=== PATIENT | male | born 1985 | race Caucasian/White ===

== ENCOUNTER 2016-08-21 18:10 | Emergency (ER) | payer OTHER ==
[2016-08-21 18:38] VITALS: RESP 18
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
--- NOTE | 2016-08-21 19:49 | CT ---
EXAMINATION TYPE: CT brain wo con DATE OF EXAM: 08/21/2016 7:44 PM COMPARISON: NONE HISTORY: PT states of yellowish fluid coming from nose after head injury today. Headache. CT DLP: 1054.2 mGycm. Automated Exposure Control for Dose Reduction was Utilized. TECHNIQUE: CT scan of the head is performed without contrast. FINDINGS: There is no acute intracranial hemorrhage, mass effect, or midline shift identified. The ventricles and sulci are within normal limits in size. The globes are intact and the visualized sin uses are clear. IMPRESSION: No acute intracranial hemorrhage, mass effect, or midline shift is seen. Unremarkable st udy.
[2016-08-21 19:52] VITALS: BP 141/81; PULSE 71; TEMP 98.4
== END 2016-08-21 20:16 | disposition home or self-care (01) ==
LOC: EC 18:10
DX: S09.90XA Unspecified injury of head, initial encounter (principal); R51 Headache; J34.89 Other specified disorders of nose and nasal sinuses; E11.9 Type 2 diabetes mellitus without complications; Z87.891 Personal history of nicotine dependence; Z79.4 Long term (current) use of insulin; Z79.899 Other long term (current) drug therapy; Z88.0 Allergy status to penicillin; W22.09XA Striking against other stationary object, initial encounter
CPT/HCPCS: 70450; 99283

== ENCOUNTER 2017-01-11 10:47 | Day surgery (SDC) | payer OTHER, BC ==
[2017-01-09 18:32] VITALS: BMI 29.8
[~2017-01-11 10:47] MED LIST: HYDROmorphone 1 MG/ML 1 ML SYRINGE IVP PRN; LACTATED RINGERS 1,000 ML IV SCH; LIDOCAINE 1% 20 ML VIAL (10MG/ML) FOR IV START INTRADERMA PRN; ONDANSETRON 4 MG/2 ML VIAL IVP ONE; Pre Op ABX Message 1 EACH MISC MISCELLANE ONE
[2017-01-11 11:08] LABS: Glucose,Whole Blood 203 mg/dL (75-99)
[2017-01-11 11:12] VITALS: RESP 16; TEMP 98.2
[2017-01-11] MEDS ORDERED: SUCCINYLCHOLINE CHLORIDE 100 MG/5 ML SYR IV ONE (11:24)
[2017-01-11] MEDS ORDERED: LIDOCAINE 1% INJ 10MG/ML (20 ML MDV) ONE (11:24)
[2017-01-11] MEDS ORDERED: fentaNYL (PF) 50 MCG/ML 2 ML AMP ONE (11:24)
[2017-01-11] MEDS ORDERED: MIDAZOLAM 2 MG/2 ML VIAL ONE (11:24)
[2017-01-11] MEDS ORDERED: PROPOFOL 10 MG/ML 20 ML VIAL IV ONE (11:24)
[2017-01-11] MEDS ORDERED: SODIUM CHLORIDE 0.9% 50 ML with CLINDAMYCIN 600 MG IV ONE ×2 (11:54)
[2017-01-11] MEDS ORDERED: BUPIVACAINE (PF) 0.25% 30 ML VIAL SQ ONE ×3 (11:57)
[2017-01-11] MEDS ORDERED: LACTATED RINGERS 1,000 ML IV ONE (12:16)
--- NOTE | 2017-01-11 14:14 | P.OP ---
Date of Procedure: 01/11/17 Preoperative Diagnosis: Multiple lipomastosis Postoperative Diagnosis: Multiple lipomatosis Procedure(s) Performed: Excisoin of lipoma Anesthesia: EMERALD Surgeon: Raul Hammer Pathology: other Condition: stable Operative Findings: Patient had deep subcutaneous lipomas that was below the subcu cutaneous tissue extending to the muscular fascia in all 4 locations in the left lower back as well as the forearm. Measurements include for the two back lipomas 5 x 3 cm x 1.5 cm and 5.5 x 2.5 x 1 cm., Back lipomas were multilobulated and had previously been removed once therefore there was significant amount of scar tissue associated with them. The 2 forearm lipomas were well encapsulated and firm and measured 1.5 x 2.3 x 0.3 cm, 1.1 x 0.8 x 0.3 cm. Description of Procedure: Patient a 31-year-old male who was presented with multiple uncomfortable growing lipomas. Counseled him to take the most symptomatic lipomas off. Informed consent was obtained after which the patient was taken to the operating room and placed in the left decubitus position with the left arm up. Appropriate timeout was called patient prepped and draped in sterile surgical fashion and the 2 lipomas and left low back were identified and after local infiltration skin was incised and the lipoma was dissected free from the surrounding tissue and removed completely. The cavity itself was then closed with 3-0 Vicryl skin closed with 4-0 Monocryl.. Was done for both lipomas on the left lower back the patient's left arm was prepped in the appropriate fashion and similarly to further lipomas were removedThe same fashion as the first one has been described above. It was closed similarly and Dermabond was applied and all of these incisions and then pressure dressing with Tegaderm was applied. Patient was extubated taken to recovery room in stable condition there were no complications.
[2017-01-11 14:21] LABS: Glucose,Whole Blood 177 mg/dL (75-99)
[2017-01-11 14:46] VITALS: BP 126/72; PULSE 51
== END 2017-01-11 15:16 | disposition home or self-care (01) ==
LOC: OR 10:47
PROVIDERS: ATTEND Surgery
DX: E88.2 Lipomatosis, not elsewhere classified (principal); Z87.891 Personal history of nicotine dependence; E11.9 Type 2 diabetes mellitus without complications; Z79.4 Long term (current) use of insulin; Z88.0 Allergy status to penicillin
CPT/HCPCS: 88304; 21932; 21933; 25076 ×2; J2250; J2405; J2001; J3010; J0330; J2704

== ENCOUNTER 2022-12-27 22:29 | Emergency (ER) | payer BC, OTHER ==
[2022-12-27 22:45] VITALS: RESP 16; TEMP 98.6
[2022-12-27 22:51] LABS: Glucose,Whole Blood 134 mg/dL (70-110)
[2022-12-27 23:27] LABS: Basophils % (A) 0 %; Eosinophils # (A) 0.2 k/uL (0-0.7); Eosinophils % (A) 3 %; HCT 38.9 % (39.0-53.0); HGB 13.6 gm/dL (13.0-17.5); Lymphocytes # (A) 1.7 k/uL (1.0-4.8); Lymphocytes % (A) 19 %; MCH 30.8 pg (25.0-35.0); MCHC 34.9 g/dL (31.0-37.0); MCV 88.3 fL (80.0-100.0); Mean Platelet Volume 10.5; Monocytes # (A) 0.5 k/uL (0-1.0); Monocytes % (A) 6 %; Neutrophils # (A) 6.6 k/uL (1.3-7.7); Neutrophils % (A) 72 %; Platelet Count 154 k/uL (150-450); RBC 4.41 m/uL (4.30-5.90); RDW 12.6 % (11.5-15.5); WBC 9.3 k/uL (3.8-10.6)
[2022-12-27 23:45] LABS: ALT 23 U/L (4-49); AST 23 U/L (17-59); African American GFR (CKD) >90 (>60 ml/min/1.73 sqM); Albumin 4.1 g/dL (3.5-5.0); Alkaline Phosphatase 79 U/L (38-126); Anion Gap 8 mmol/L; Blood Urea Nitrogen 19 mg/dL (9-20); Calcium 8.8 mg/dL (8.4-10.2); Carbon Dioxide 24 mmol/L (22-30); Chloride 106 mmol/L (98-107); Glucose 138 mg/dL (74-99); Non-African American GFR(CKD) >90 (>60 ml/min/1.73 sqM); Phosphorus 3.3 mg/dL (2.5-4.5); Potassium 3.6 mmol/L (3.5-5.1); Sodium 138 mmol/L (137-145); Total Bilirubin 0.4 mg/dL (0.2-1.3); Total Protein 6.6 g/dL (6.3-8.2)
--- NOTE | 2022-12-28 00:01 | ED ---
Recheck HPI - General Chief Complaint: Recheck/Abnormal Lab/Rx Stated Complaint: Diabetic Complications Time Seen by Provider: 12/27/22 22:38 Source: patient, EMS, RN notes reviewed Mode of arrival: EMS Limitations: no limitations - History of Present Illness Initial Comments: This is a 37-year-old male who presents to the emergency department for concerns related to his diabetes. States that he took his typical medication this evening, which includes 22 units of Lantus at 2100 and 9 units of Apidra at 1930 with his dinner. He ate his full dinner, including 64 grams of carbohydrates. Shortly afterwards, he noticed that his blood sugar slowly started to drop, and reached a level of 50. He felt very nauseous when this occurred. This prompted him to call EMS. States that he ate a candy bar and glucagon, however this only temporarily increased blood sugar. EMS then had him eat a peanut butter sandwich, and his sugar seemed to stabilize. States that this has happened in the past, however his phlebotomy technologist did not give any indication as to why this may have occurred. Believes that something may have happened causing his Lantus to absorb immediately as opposed to over the course of 24 hours. Denies any fevers, chills, sore throat, cough, dyspnea, chest pain, palpitations, abdominal pain, vomiting, diarrhea, back pain, or headaches. MD Complaint: abnormal lab - Related Data Home Medications Medication Instructions Recorded Confirmed Insulin Glargine [Lantus] 26 unit SQ HS 04/27/15 02/22/17 Insulin Lispro [humaLOG] See Protocol SQ TID-W/MEALS 04/27/15 02/22/17 Cholecalciferol [Vitamin D3] 2,000 unit PO DAILY 08/21/16 02/22/17 Multivit-Min/FA/Lycopen/Lutein 1 tab PO DAILY 08/21/16 02/22/17 [Centrum Silver Men Tablet] Previous Rx's Medication Instructions Recorded Ibuprofen [Motrin] 800 mg PO Q8H PRN #30 tab 01/11/17 traMADol HCL [Conzip] 100 mg PO Q12HR PRN #4 cap 02/22/17 Allergies Allergy/AdvReac Type Severity Reaction Status Date / Time amoxicillin Allergy Dyspnea,jenny Verified 12/27/22 22:45 h,vomiting Penicillins Allergy Dyspnea,jenny Verified 12/27/22 22:45 h,vomiting Review of Systems ROS Statement: Those systems with pertinent positive or pertinent negative responses have been documented in the HPI. ROS Other: All systems not noted in ROS Statement are negative. Past Medical History Past Medical History: Diabetes Mellitus Additional Past Medical History / Comment(s): MIGRAINES. HIATAL HERNIA. History of Any Multi-Drug Resistant Organisms: None Reported Past Surgical History: Hernia Repair, Tonsillectomy Additional Past Surgical History / Comment(s): DEC 2016, LIPOMAS REMOVED. Hiatal hernia surgerY. Umbilical hernia surgery. Past Anesthesia/Blood Transfusion Reactions: Family History of Problems w/ Anesthesia, Postoperative Nausea & Vomiting (PONV) Additional Past Anesthesia/Blood Transfusion Reaction / Comment(s): Mother-takes long time to wear off Past Psychological History: Anxiety, Depression, PTSD Smoking Status: Former smoker Past Alcohol Use History: None Reported Past Drug Use History: Marijuana - Past Family History Mother Family Medical History: No Reported History General Exam Limitations: no limitations General appearance: alert, anxious Head exam: Present: atraumatic, normocephalic, normal inspection Respiratory exam: Present: normal lung sounds bilaterally. Absent: respiratory distress, wheezes, rales, rhonchi, stridor Cardiovascular Exam: Present: regular rate, normal rhythm, normal heart sounds. Absent: systolic murmur, diastolic murmur, rubs, gallop, clicks Neurological exam: Present: alert, oriented X3, CN II-XII intact Psychiatric exam: Present: normal affect, normal mood Skin exam: Present: warm, dry, intact, normal color. Absent: rash Course Vital Signs 12/27/22 12/27/22 12/28/22 22:32 22:44 02:34 Temperature 98.6 F Pulse Rate 89 71 Respiratory 16 16 Rate Blood Pressure 123/79 128/77 O2 Sat by Pulse 97 97 Oximetry Medical Decision Making - Medical Decision Making This is a 37-year-old male who presents to the emergency department for an episode of hypoglycemia. Was pt. sent in by a medical professional or institution? @ -No Did you speak to anyone other than the patient for history? @ -No Did you review nursing and triage notes? @ -Yes, and I agree, it is accurate with regards to the patient's symptoms. Were old charts reviewed? @ -No Differential Diagnosis? @ -Differential Hypoglycemia: Diet, insulin dose, illness, this is not meant to be an all-inclusive list. EKG interpreted by me (3pts min.)? @ -Not obtained X-rays interpreted by me (1pt min.)? @ -Not obtained CT interpreted by me (1pt min.)? @ -Not obtained U/S interpreted by me (1pt. min.)? @ -Not obtained What testing was considered but not performed? (CT, X-rays, U/S, labs)? Why? @ -None What meds were considered but not given? Why? @ -None Did you discuss the management of the patient with other professionals? @ -None Did you reconcile home meds? @ -No Was smoking cessation discussed for >3mins.? @ -No Was critical care preformed (if so, how long)? @ -No Were there social determinants of health that impacted care today? How? (Homele ssness, low income, unemployed, alcoholism, drug addiction, transportation, low edu. Level, literacy, decrease access to med. care, senior care, rehab)? @ -No Was there de-escalation of care discussed even if they declined? (Discuss DNR or withdrawal of care, Hospice)? @ -No What co-morbidities impacted this encounter? (DM, HTN, Smoking, COPD, CAD, Cancer, CVA, Hep., AIDS, mental health diagnosis, sleep apnea, morbid obesity)? @ -Type 1 DM, anxiety Was patient admitted / discharged? @ -Discharged. Lab work obtained and found to be nonactionable. Urinalysis negative for signs of infection. Patient did not exhibit any hypoglycemic episodes while in the emergency department and otherwise remained asymptomatic. We discussed that this episode could be related to what he had to eat for dinner. We also discussed that injection technique and location can impact how the Lantus is absorbed. If this were to be injected into a blood vessel, this can cause the Lantus to be rapidly absorbed as opposed to absorbed over the course of 24 hours. He is instructed to follow-up with his phlebotomy technologist for further evaluation and discussion of this event. Patient discharged home in stable condition. Undiagnosed new problem with uncertain prognosis? @ -None Drug Therapy requiring intensive monitoring for toxicity (Heparin, Nitro, Insulin, Cardizem)? @ -None Were any procedures done? @ -None Diagnosis/symptom? @ -Hypoglycemic event in diabetes Acute, or Chronic, or Acute on Chronic? @ -Acute Uncomplicated (without systemic symptoms) or Complicated (systemic symptoms)? @ -Uncomplicated Side effects of treatment? @ -None Exacerbation, Progression, or Severe Exacerbation] @ -Not applicable Poses a threat to life or bodily function? @ -No Return precautions reviewed in depth, the patient is instructed to return to the emergency department with any new, worsening, or concerning symptoms. Patient verbalized understanding. This case was discussed in detail with the attending ED physician, Dr. Ruiz. Presentation, findings, and treatment plan discussed in detail as well. - Lab Data Result diagrams: 12/27/22 23:15 12/27/22 23:15 Lab Results 12/27/22 12/27/22 12/27/22 Range/Units 22:49 23:15 23:15 WBC 9.3 (3.8-10.6) k/uL RBC 4.41 (4.30-5.90) m/uL Hgb 13.6 (13.0-17.5) gm/dL Hct 38.9 L (39.0-53.0) % MCV 88.3 (80.0-100.0) fL MCH 30.8 (25.0-35.0) pg MCHC 34.9 (31.0-37.0) g/dL RDW 12.6 (11.5-15.5) % Plt Count 154 (150-450) k/uL MPV 10.5 Neutrophils % 72 % Lymphocytes % 19 % Monocytes % 6 % Eosinophils % 3 % Basophils % 0 % Neutrophils # 6.6 (1.3-7.7) k/uL Lymphocytes # 1.7 (1.0-4.8) k/uL Monocytes # 0.5 (0-1.0) k/uL Eosinophils # 0.2 (0-0.7) k/uL Basophils # 0.0 (0-0.2) k/uL Sodium 138 (137-145) mmol/L Potassium 3.6 (3.5-5.1) mmol/L Chloride 106 (98-107) mmol/L Carbon Dioxide 24 (22-30) mmol/L Anion Gap 8 mmol/L BUN 19 (9-20) mg/dL Creatinine 0.84 (0.66-1.25) mg/dL Est GFR (CKD-EPI)AfAm >90 (>60 ml/min/1.73 sqM) Est GFR (CKD-EPI)NonAf >90 (>60 ml/min/1.73 sqM) Glucose 138 H (74-99) mg/dL POC Glucose (mg/dL) 134 H (70-110) mg/dL POC Glu Bleach Boiler Filler ID Jovanna Auguste Calcium 8.8 (8.4-10.2) mg/dL Phosphorus 3.3 (2.5-4.5) mg/dL Magnesium 2.0 (1.6-2.3) mg/dL Total Bilirubin 0.4 (0.2-1.3) mg/dL AST 23 (17-59) U/L ALT 23 (4-49) U/L Alkaline Phosphatase 79 (38-126) U/L Total Protein 6.6 (6.3-8.2) g/dL Albumin 4.1 (3.5-5.0) g/dL Urine Color Urine Appearance (Clear) Urine pH (5.0-8.0) Ur Specific [place] (1.001-1.035) Urine Protein (Negative) Urine Glucose (UA) (Negative) Urine Ketones (Negative) Urine Blood (Negative) Urine Nitrite (Negative) Urine Bilirubin (Negative) Urine Urobilinogen (<2.0) mg/dL Ur Leukocyte Esterase (Negative) 12/28/22 12/28/22 Range/Units 01:50 01:52 WBC (3.8-10.6) k/uL RBC (4.30-5.90) m/uL Hgb (13.0-17.5) gm/dL Hct (39.0-53.0) % MCV (80.0-100.0) fL MCH (25.0-35.0) pg MCHC (31.0-37.0) g/dL RDW (11.5-15.5) % Plt Count (150-450) k/uL MPV Neutrophils % % Lymphocytes % % Monocytes % % Eosinophils % % Basophils % % Neutrophils # (1.3-7.7) k/uL Lymphocytes # (1.0-4.8) k/uL Monocytes # (0-1.0) k/uL Eosinophils # (0-0.7) k/uL Basophils # (0-0.2) k/uL Sodium (137-145) mmol/L Potassium (3.5-5.1) mmol/L Chloride (98-107) mmol/L Carbon Dioxide (22-30) mmol/L Anion Gap mmol/L BUN (9-20) mg/dL Creatinine (0.66-1.25) mg/dL Est GFR (CKD-EPI)AfAm (>60 ml/min/1.73 sqM) Est GFR (CKD-EPI)NonAf (>60 ml/min/1.73 sqM) Glucose (74-99) mg/dL POC Glucose (mg/dL) 197 H (70-110) mg/dL POC Glu Bleach Boiler Filler Fanta Dodd Calcium (8.4-10.2) mg/dL Phosphorus (2.5-4.5) mg/dL Magnesium (1.6-2.3) mg/dL Total Bilirubin (0.2-1.3) mg/dL AST (17-59) U/L ALT (4-49) U/L Alkaline Phosphatase (38-126) U/L Total Protein (6.3-8.2) g/dL Albumin (3.5-5.0) g/dL Urine Color Colorless Urine Appearance Clear (Clear) Urine pH 6.5 (5.0-8.0) Ur Specific [place] 1.013 (1.001-1.035) Urine Protein Negative (Negative) Urine Glucose (UA) Negative (Negative) Urine Ketones Negative (Negative) Urine Blood Negative (Negative) Urine Nitrite Negative (Negative) Urine Bilirubin Negative (Negative) Urine Urobilinogen <2.0 (<2.0) mg/dL Ur Leukocyte Esterase Negative (Negative) Disposition Clinical Impression: Hypoglycemic event due to diabetes Disposition: HOME SELF-CARE Instructions (If sedation given, give patient instructions): Hypoglycemia in a Person with Diabetes (ED), What to Do if Your Blood Sugar is Low (ED) Additional Instructions: Return to the emergency department with any new, worsening, or concerning symptoms. Follow up with your primary care provider in 1-2 days and with your phlebotomy technologist. Is patient prescribed a controlled substance at d/c from ED?: No Referrals: Shaheen Ruiz MD [Primary Care Provider] - 1-2 days
[2022-12-28 01:56] LABS: Glucose,Whole Blood 197 mg/dL (70-110)
[2022-12-28 02:09] LABS: Appearance,Urine Clear (Clear); Bilirubin,Urine Negative (Negative); Blood,Urine Negative (Negative); Color,Urine Colorless; Glucose,Urine (UA) Negative (Negative); Ketones,Urine Negative (Negative); Leukocyte Esterase,Urine Negative (Negative); Nitrite,Urine Negative (Negative); PH, Urine 6.5 (5.0-8.0); Protein,Urine Negative (Negative); Specific Gravity,Urine 1.013 (1.001-1.035); Urobilinogen,Urine <2.0 mg/dL (<2.0)
[2022-12-28 02:35] VITALS: BP 128/77; PULSE 71
== END 2022-12-28 02:35 | disposition home or self-care (01) ==
LOC: EC 22:29
DX: E11.649 Type 2 diabetes mellitus with hypoglycemia without coma (principal); F12.90 Cannabis use, unspecified, uncomplicated; Z86.59 Personal history of other mental and behavioral disorders; Z79.4 Long term (current) use of insulin; Z87.891 Personal history of nicotine dependence; Z88.0 Allergy status to penicillin
CPT/HCPCS: 36415; 80053; 81003; 83735; 84100; 85025; 99284

== ENCOUNTER 2024-03-07 06:22 | Day surgery (SDC) | payer OTHER ==
[2024-03-04 08:59] VITALS: BMI 25.7
--- NOTE | 2024-03-07 06:19 | P.GSHP ---
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 He reports painful masses that interferes with his insulin pump. Is mass with tenderness over 10+ years. He presents for selected of painful masses of the left upper arm excision. PAST MEDICAL HISTORY: Please see list. PAST SURGICAL HISTORY: Please see list. MEDICATIONS: Please see list. ALLERGIES: Please see list. SOCIAL HISTORY: No illicit drug use FAMILY HISTORY: No reports of Crohn disease or ulcerative colitis. REVIEW OF ORGAN SYSTEMS: CONSTITUTIONAL: No reports of fevers or chills. GI: Denies any blood in stools or constipation. ENDOCRINE: Diabetic type I, insulin-dependent PHYSICAL EXAM: VITAL SIGNS: Stable Musculoskeletal: No clubbing cyanosis GENERAL: Well developed and in no acute distress. Pleasant. HEENT: No sclera icterus. Extraocular movements grossly intact. Moist buccal mucosa. Head is atraumatic, normocephalic. Hears conversational speech. No nasal drainage. NECK: Supple without lymphadenopathy. No JV distention. CHEST: Non-labored respirations and equal bilateral excursions. CARDIOVASCULAR: Regular rate and rhythm. Palpable 2+ radial pulses. ABDOMEN: Soft. Non-tender. Nondistended. NEUROLOGIC: No focal or lateralizing signs. PSYCH: Appropriate affect. Alert and oriented to person, place and time. SKIN: Multiple left upper arm tumors, aggregate over 6 cm ASSESSMENT: 1. Left upper arm tumors, over 6 cm PLAN: 1. Will proceed of excision of left forearm tumor. Benefits and risks described. 2. He is elevated risk for complications due to diabetes type 1 Past Medical History Past Medical History: Diabetes Mellitus, Hyperlipidemia Additional Past Medical History / Comment(s): MIGRAINES. MULTIPLE LIPOMA'S ON BODY History of Any Multi-Drug Resistant Organisms: None Reported Past Surgical History: Hernia Repair, Tonsillectomy Additional Past Surgical History / Comment(s): DEC 2016, LIPOMAS REMOVED. Hiatal hernia surgerY. Umbilical hernia surgery. Past Anesthesia/Blood Transfusion Reactions: Family History of Problems w/ Anesthesia, Postoperative Nausea & Vomiting (PONV) Additional Past Anesthesia/Blood Transfusion Reaction / Comment(s): Mother-takes long time to wear off Smoking Status: Former smoker - Past Family History Mother Family Medical History: No Reported History Medications and Allergies Home Medications Medication Instructions Recorded Confirmed Type Atorvastatin [Lipitor] 10 mg PO DAILY 03/04/24 03/04/24 History Cetirizine HCl [Zyrtec] 10 mg PO DAILY 03/04/24 03/04/24 History Cholecalciferol [Vitamin D3 (125 125 mcg PO DAILY 03/04/24 03/04/24 History Mcg = 5000 Iu)] INSULIN LISPRO (For Pump) [humaLOG 0.01 units SQ-PUMP CONTINUOUS 03/04/24 03/04/24 History (For Pump)] Allergies Allergy/AdvReac Type Severity Reaction Status Date / Time amoxicillin Allergy Dyspnea,jenny Verified 03/04/24 08:44 h,vomiting Penicillins Allergy Dyspnea,jenny Verified 03/04/24 08:44 h,vomiting
[~2024-03-07 06:22] MED LIST changes: +ACETAMINOPHEN TAB 500 MG TAB PO PRN; -HYDROmorphone 1 MG/ML 1 ML SYRINGE IVP PRN; -LACTATED RINGERS 1,000 ML IV SCH; -LIDOCAINE 1% 20 ML VIAL (10MG/ML) FOR IV START INTRADERMA PRN; -ONDANSETRON 4 MG/2 ML VIAL IVP ONE
[2024-03-07] MEDS ORDERED: HYDROmorphone 0.5 MG/0.5 ML SYRINGE IVP PRN (07:00)
[2024-03-07] MEDS ORDERED: MIDAZOLAM 2 MG/2 ML VIAL IV PRN (07:00)
[2024-03-07] MEDS: ONDANSETRON 4 MG/2 ML VIAL IVP PRN (07:29)
[2024-03-07] MEDS: LACTATED RINGERS 1,000 ML IV SCH (07:29)
[2024-03-07 07:32] LABS: Basophils # (A) 0.1 k/uL (0-0.2); Basophils % (A) 1 %; Eosinophils # (A) 0.1 k/uL (0-0.7); Eosinophils % (A) 2 %; HCT 43.6 % (39.0-53.0); HGB 13.8 gm/dL (13.0-17.5); Lymphocytes # (A) 1.9 k/uL (1.0-4.8); Lymphocytes % (A) 28 %; MCH 28.4 pg (25.0-35.0); MCHC 31.8 g/dL (31.0-37.0); MCV 89.3 fL (80.0-100.0); Mean Platelet Volume 9.3; Monocytes # (A) 0.4 k/uL (0-1.0); Monocytes % (A) 6 %; Neutrophils # (A) 4.2 k/uL (1.3-7.7); Neutrophils % (A) 61 %; Platelet Count 191 k/uL (150-450); RBC 4.88 m/uL (4.30-5.90); RDW 12.5 % (11.5-15.5); WBC 6.9 k/uL (3.8-10.6)
[2024-03-07] MEDS: DEXAMETHASONE SOD PHOSPHATE 4 MG/ML 1 ML VIAL IVP STA (07:33)
[2024-03-07] MEDS: FAMOTIDINE 20 MG/2 ML VIAL IV STA (07:34)
[2024-03-07] MEDS: HEPARIN SODIUM,PORCINE 5,000 UNIT/ML 1 ML VIAL SQ PRN (07:35)
[2024-03-07] MEDS ORDERED: SUCCINYLCHOLINE CHLORIDE 200 MG/10 ML VIAL IV ONE (07:36)
[2024-03-07] MEDS ORDERED: LIDOCAINE 1% INJ 10MG/ML (20 ML MDV) ONE (07:36)
[2024-03-07] MEDS ORDERED: fentaNYL (PF) 50 MCG/ML 2 ML AMP ONE (07:36)
[2024-03-07] MEDS ORDERED: MIDAZOLAM 2 MG/2 ML VIAL ONE (07:36)
[2024-03-07] MEDS ORDERED: PROPOFOL 10 MG/ML 20 ML VIAL IV ONE (07:36)
--- NOTE | 2024-03-07 07:36 | P.HPADDEND ---
H&P Addendum H&P Addendum Date: 03/07/24 Patient present with multiple tumors of the left upper arm and will proceed with strategic incisions to minimize scarring. All tumors will not be possible for resection as discussed with patient. Additionally due to the severity of his allergy, antibiotics on hold.
[2024-03-07] MEDS: IV FLUID CONTINUATION 1,000 ML IV ONE ×2 (07:39→09:17)
[2024-03-07 07:40] LABS: Glucose,Whole Blood 152 mg/dL (70-110)
[2024-03-07 07:43] LABS: ALT 17 U/L (4-49); AST 18 U/L (17-59); African American GFR (CKD) >90 (>60 ml/min/1.73 sqM); Albumin 4.3 g/dL (3.5-5.0); Alkaline Phosphatase 71 U/L (38-126); Anion Gap 6 mmol/L; Blood Urea Nitrogen 15 mg/dL (9-20); Calcium 9.3 mg/dL (8.4-10.2); Carbon Dioxide 30 mmol/L (22-30); Chloride 104 mmol/L (98-107); Glucose 159 mg/dL (74-99); Non-African American GFR(CKD) >90 (>60 ml/min/1.73 sqM); Potassium 3.7 mmol/L (3.5-5.1); Sodium 140 mmol/L (137-145); Total Bilirubin 0.8 mg/dL (0.2-1.3); Total Protein 6.8 g/dL (6.3-8.2)
[2024-03-07] MEDS: LIDOCAINE 1%-EPI 1:100,000 20 ML VIAL SQ ONE (07:59)
[2024-03-07 09:13] VITALS: TEMP 97.8
[2024-03-07 09:16] LABS: Glucose,Whole Blood 150 mg/dL (70-110)
[2024-03-07 09:49] VITALS: RESP 16
[2024-03-07 09:56] LABS: Glucose,Whole Blood 208 mg/dL (70-110)
[2024-03-07 09:58] LABS: Glucose,Whole Blood 198 mg/dL (70-110)
[2024-03-07 10:06] VITALS: BP 125/81; PULSE 81
[2024-03-07 10:06] LABS: Glucose,Whole Blood 195 mg/dL (70-110)
--- NOTE | 2024-03-13 17:42 | P.OP ---
Date of Procedure: 03/07/24 Description of Procedure: SURGEON: MARIANA LINN MD [employer] MACHINE OPERATOR: NONE. PREOPERATIVE DIAGNOSES: 1. Left upper arm lipoma 2. Dercum's disease diffuse soft tissue lipoma 3. Insulin-dependent diabetes type 1 4. Hyperlipidemia 5. Seasonal allergy 6. Insulin pump status 7. Generalized anxiety disorder 8. Depressive disorder 9. Posttraumatic stress disorder 10. Migraines 11. Remote tobacco use disorder POSTOPERATIVE DIAGNOSES: 1. Left upper arm lipoma, 10 x 6 cm 2. Dercum's disease diffuse soft tissue lipoma 3. Insulin-dependent diabetes type 1 4. Hyperlipidemia 5. Seasonal allergy 6. Insulin pump status 7. Generalized anxiety disorder 8. Depressive disorder 9. Posttraumatic stress disorder 10. Migraines 11. Remote tobacco use disorder OPERATION: 1. Excision of multiple complex left arm subcutaneous tumor x 12, 10 x 6 cm in aggregate size 2. Intermediate closure of left arm incision x 2 incision, 6 cm and 4 cm ANESTHESIA: General With local anesthetic ESTIMATED BLOOD LOSS: 5 mL. SPECIMENS REMOVED: 1. Left upper arm subcutaneous tumor multiple x 12 COMPLICATIONS: None. FINDINGS: 1. Multiple left upper arm anterior posterior lateral lipomas with combined size 10 cm x 6 cm resected 2. Lipomas spontaneous x 12 removed ranging from 2 cm to 4 cm in size. 3. Closure of incisions using 3-0 Vicryl and 4-0 Monocryl of 6 cm and 4 cm incisions lateral upper arm INDICATIONS: The patient is a 38-year-old male rare disorder Decrum's with multiple painful subcutaneous lipomas along the body and extremities. Patient is seeking excision to afford placement of his insulin sensor along his extremities including removal of painful lesions. Surgical options,including excision was discussed. Benefits and risks were described during and deformity. Informed consent was obtained. DESCRIPTION OF PROCEDURE: Patient was brought into the operating room, laid in supine position. After general anesthetic, the left arm was positioned with a brace to expose the left upper lateral and posterior arm where the patient previously marked with indelible marker upwards of 10 painful lipomas of the arm. The skin was prepped and draped in standard sterile fashion using ChloraPrep. A timeout protocol was confirmed with the surgical team regarding patient's name including procedures to be performed. Preoperative medications was administered. Antibiotics were avoided as patient has severe allergy to penicillin and clindamycin avoided due to high risk of resistance. Next, a local field block was administered. Strategic longitudinal incision of 6 cm was made along the left upper anterior lateral arm to resect at least 8 lipomas varying between 2 to 4 cm in size. 5 cm lateral to that incision, another 4 cm longitudinal incision was used to resect lipomas of the deep subcutaneous tissue ranging between 2 to 4 cm in size. Approximately 12 lipomas were removed with aggregate size of 10 cm x 6 cm. Hemostasis was checked with electrocautery. The wound was closed in multiple layers including 3-0 Vicryl for the deep subcutaneous tissue and interrupted fashion. The skin was closed using 4-0 Monocryl running subcuticular fashion. The skin was cleansed with hydrogen peroxide. Dermabond tape was placed. Optifoam dressing was placed. At the end of the procedure, needle, sponge, and instrument count had been verified correct by the certified surgical assistant. The patient was taken to the postanesthesia care unit in stable condition. In the recovery room, an Roland wrap was placed over the arm to minimize swelling. Plan - Discharge Summary Discharge Rx Participant: No New Discharge Prescriptions: New Acetaminophen Tab [Tylenol Tab] 1,000 mg PO Q6HR PRN #30 tablet PRN Reason: Pain Continue INSULIN LISPRO (For Pump) [humaLOG (For Pump)] 0.01 units SQ-PUMP CONTINUOUS Atorvastatin [Lipitor] 10 mg PO DAILY Cholecalciferol [Vitamin D3 (125 Mcg = 5000 Iu)] 125 mcg PO DAILY Cetirizine HCl [Zyrtec] 10 mg PO DAILY Discharge Medication List Atorvastatin [Lipitor] 10 mg PO DAILY 03/04/24 [History] Cetirizine HCl [Zyrtec] 10 mg PO DAILY 03/04/24 [History] Cholecalciferol [Vitamin D3 (125 Mcg = 5000 Iu)] 125 mcg PO DAILY 03/04/24 [History] INSULIN LISPRO (For Pump) [humaLOG (For Pump)] 0.01 units SQ-PUMP CONTINUOUS 03/04/24 [History] Acetaminophen Tab [Tylenol Tab] 1,000 mg PO Q6HR PRN #30 tablet 03/07/24 [Rx] Follow up Appointment(s)/Referral(s): Mariana Linn MD [STAFF PHYSICIAN] - 03/11/24 3:00 pm Patient Instructions/Handouts: *Surgery [facility] - (Anesthesia) Discharge Instructions Outpatient Surgery, Lipoma Removal (DC) Activity/Diet/Wound Care/Special Instructions: DO NOT REMOVE DRESSING. May shower BUT KEEP DRESSING DRY Diet as tolerated. Use Tylenol scheduled for the next 24-48 hours for best pain relief. Use ice along incisions for today to prevent swelling. Discharge Disposition: HOME SELF-CARE
== END 2024-03-07 10:53 | disposition home or self-care (01) ==
LOC: OR 06:22
PROVIDERS: ATTEND Surgery Plastic and Reconstructive Surgery
DX: D17.22 Benign lipomatous neoplasm of skin and subcutaneous tissue of left arm (principal); E78.5 Hyperlipidemia, unspecified; E10.9 Type 1 diabetes mellitus without complications; G43.909 Migraine, unspecified, not intractable, without status migrainosus; F41.1 Generalized anxiety disorder; F32.A Depression, unspecified; F43.10 Post-traumatic stress disorder, unspecified; J30.2 Other seasonal allergic rhinitis; Z96.41 Presence of insulin pump (external) (internal); Z98.890 Other specified postprocedural states; Z88.0 Allergy status to penicillin; Z90.89 Acquired absence of other organs; Z87.891 Personal history of nicotine dependence; Z79.899 Other long term (current) drug therapy; Z79.4 Long term (current) use of insulin
CPT/HCPCS: 88304; 80053; 85025; 83036; 24071; J2250; J0330; J1644; J1100; J2405; J2003; J3010; J3490; J2704